=== PATIENT | male | born 1970 | race Caucasian/White ===

== ENCOUNTER 2019-01-07 15:24 | Emergency (ER) | payer SELFPAY ==
[~2019-01-07] VITALS: Ht 177.8 cm; Wt 58.5 kg
[2019-01-07] MEDS ORDERED: NKM (15:53)
[2019-01-07 16:00] VITALS: BP 125/75
--- NOTE | 2019-01-07 16:00 | NUR ---
ED Nurse Note: Pt aaox4, vss, no acute distress. Pt c/o bruise, swelling over the RUE; patient sustained injury yesterday 0800 while cutting wood with saw. patient states 'hit by a piece of wood kicked back from table saw'.
--- NOTE | 2019-01-07 16:57 | Diagnostic Imaging Report ---
Indications: Pain, trauma Technique: Two views of the right forearm Comparison: None Findings: No acute fractures. No dislocations. There is a small bone island in the radial styloid. There is a small radial head osteophyte. Impression: No acute bony trauma
--- NOTE | 2019-01-07 16:57 | NUR ---
ED Nurse Note: Pt with x-ray tech
--- NOTE | 2019-01-07 17:11 | Diagnostic Imaging Report ---
Indications: Right arm Technique: Two views of the right humerus Comparison: None Findings: No acute fractures. No dislocations. Joint spaces are preserved. No radiopaque foreign body Impression: Negative
[2019-01-07 17:23] VITALS: BP 130/76
--- NOTE | 2019-01-07 17:23 | NUR ---
ER DISCHARGE NOTE: Patient is cleared to be discharged per ERMD, pt is aox4, on room air, with stable vital signs. pt was given dc and prescription instructions, pt was able to verbalize understanding, pt id band removed without complications. pt is able to ambulate with steady gait. pt took all belongings. Pt refuses all pain medication and states that he "feels great."
--- NOTE | 2019-01-07 18:11 | Emergency Room Report ---
History of Present Illness General Chief Complaint: Upper Extremity Injury Source: Patient Present Illness HPI 48-year-old male presents ED for evaluation. Patient complaining of bruising and swelling to the right arm. States that when using a table saw yesterday piece of wood flew out and hit him in the right arm at high-speed. States there was pain initially which is has been resolving. States his arm looked noticeably more swollen and bruising today. Went to urgent care and was referred to ED for evaluation. Pain is dull, 5 out of 10, nonradiating. Notes limited flexion and extension of his right elbow. no other aggravating or relieving factors. Denies any other associated symptoms Allergies: Coded Allergies: No Known Allergies (Unverified , 01/07/19) Patient History Past Medical History: none Past Surgical History: none Pertinent Family History: none Social History: Denies: smoking, alcohol use, drug use Immunizations: UTD Reviewed Nursing Documentation: PMH: Agreed; PSxH: Agreed Nursing Documentation-PMH Past Medical History: No Stated History Review of Systems All Other Systems: negative except mentioned in HPI Physical Exam Vital Signs Date Time Temp Pulse Resp B/P (MAP) Pulse Ox O2 Delivery O2 Flow Rate FiO2 01/07/19 15:50 98.1 76 16 122/76 (91) 96 Room Air Sp02 EP Interpretation: reviewed, normal General Appearance: no apparent distress, alert, GCS 15, non-toxic Head: normocephalic Eyes: bilateral eye normal inspection, bilateral eye PERRL ENT: normal ENT inspection Neck: normal inspection Respiratory: normal inspection Cardiovascular #1: normal inspection Gastrointestinal: normal inspection Rectal: deferred Genitourinary: no CVA tenderness Musculoskeletal: back normal, decreased range of motion, gait/station normal, swelling - R forearm, R arm. bruising Neurologic: alert, motor strength/tone normal, oriented x3, sensory intact, responsive, speech normal Psychiatric: normal inspection Skin: other - ecchymoses/bruising RUE Lymphatic: normal inspection Procedures Splinting Splinting : Consent: Verbal Pre-Made Type: sling Pre-Proc Neuro Vasc Exam: normal Post-Proc Neuro Vasc Exam: normal Patient Tolerated: Well Complications: None Medical Decision Making Diagnostic Impression: Primary Impression: Hematoma and contusion ER Course Hospital Course 48 yo M presents to ED c/o RUE brusing/swelling s/p hit by wooden object Differential diagnoses include: Fracture, dislocation, sprain, contusion Clinical course Patient placed on stretcher. After initial history and exam reveals male in no acute distress. There is bruising and ecchymosis and swelling to the right bicep and to the right forearm. There is some limited range of motion to the elbow. No crepitus. No deformity. Pulses intact. Declined pain meds. X-rays show no evidence of fracture or dislocation. Discussed findings with patient. Consideration for hematoma versus ligamentous/ tendon injury. Placed in sling. No evidence of compartment syndrome. Neurovascularly intact. Will provide orthopedic referrals. Diagnosis - hematoma and contusion Stable and discharged to home with prescription for Motrin. apply ice, keep elevated. weight bear as tolerated. Followup with PMD/ortho. Return to ED if symptoms recur or worsen Other X-Ray Diagnostic Results Other X-Ray Diagnostic Results #1: X-Ray ordered: R humerus # of Views/Limited Vs Complete: 2 View Indication: Pain EP Interpretation: Yes Interpretation: no dislocation, no soft tissue swelling, no fractures Impression: No acute disease Electronically Signed by: Electronically signed by Kenneth Gage MD Other X-Ray Diagnostic Results #2: X-Ray ordered: R forearm # of Views/Limited Vs Complete: 3 View Indication: Pain EP Interpretation: Yes Interpretation: no dislocation, no soft tissue swelling, no fractures Impression: No acute disease Electronically Signed by: Electronically signed by Kenneth Gage MD Last Vital Signs Date Time Temp Pulse Resp B/P (MAP) Pulse Ox O2 Delivery O2 Flow Rate FiO2 01/07/19 17:23 98.4 16 130/76 96 Room Air 01/07/19 15:50 76 Status: improved Disposition: HOME, SELF-CARE Condition: Stable [facility] 24 hour /7 days a week by Appointment Only [address] [facility] [id number] Patient Instructions: Hematoma, [id number] Kenneth Gage MD Jan 07, 2019 18:11
== END 2019-01-07 17:23 | disposition home or self-care (01) ==
LOC: EMR 16:10
DX: S50.11XA Contusion of right forearm, initial encounter (principal); W22.8XXA Striking against or struck by other objects, initial encounter; Y93.89 Activity, other specified; Y92.9 Unspecified place or not applicable
CPT/HCPCS: 99284